=== PATIENT | male | born 1965 | race Caucasian/White ===

== ENCOUNTER 2016-11-11 17:51 | Emergency (ER) | payer MEDICAID ==
[~2016-11-11] VITALS: Ht 172.7 cm; Wt 100.0 kg
[2016-11-11] MEDS ORDERED: PREDNISONE 20MG TABLET PO STA (18:33)
[2016-11-11] MEDS ORDERED: IPRATROPIUM/ALBUTEROL 0.5-3(2.5)MG/3ML NEB HHN ONE (18:45)
[2016-11-11] MEDS ORDERED: LEVOFLOXACIN 500MG TABLET PO ONE (18:45)
[2016-11-11] MEDS ORDERED: IBUPROFEN 800MG TABLET PO ONE (18:45)
[2016-11-11 18:53] LABS: BASOPHILS % 0.6 % (0.0-2.0); EOSINOPHILS % 0.2 % (0.0-5.0); HEMATOCRIT. 41.6 % (42.0-52.0); HEMOGLOBIN. 14.1 g/dL (14.0-18.0); LYMPHOCYTES % 8.3 % (20.0-50.0); MEAN CORPUSCULAR HEMOGLOBIN 28.1 pg (28.0-32.0); MEAN CORPUSCULAR HGB CONC 33.8 g/dL (31.0-37.0); MEAN CORPUSCULAR VOLUME 83.3 fL (80.0-94.0); MEAN PLATELET VOLUME 7.6 fl (7.4-10.4); MONOCYTES % 9.8 % (2.0-8.0); NEUTROPHILS % 81.1 % (40.0-76.0); PLATELET 287 x1000/uL (130-400); RED BLOOD CELL COUNT 4.99 mill/uL (4.7-6.1); RED CELL DISTRIBUTION WIDTH 15.2 % (11.6-14.6); WHITE BLOOD COUNT 9.5 x1000/uL (4.5-11.0)
[2016-11-11 19:10] LABS: ALANINE AMINOTRANSFERASE 46 IU/L (13-61); ALBUMIN 3.3 g/dL (3.4-5.0); ANION GAP 18; CALCIUM 8.9 mg/dL (8.5-10.1); CARBON DIOXIDE 22 mEq/L (21-32); CHLORIDE 99 mEq/L (98-107); CREATINE KINASE 271 IU/L (39-308); INDEX HEMOLYSI 1 (1-3); INDEX ICTERIC 1 (1-4); INDEX LIPEMIC 1 (1-3); NT PRO B-TYPE NATRIURETIC PEP 39 pg/mL (5-125); TROPONIN I < 0.02 ng/mL (0.00-0.04); UREA NITROGEN BLOOD 15 mg/dL (7-21); eGFR > 60 mL/min (>60)
[2016-11-11 22:09] VITALS: BP 130/89
== END 2016-11-11 22:19 | disposition home or self-care (01) ==
LOC: ER 18:31
DX: J20.9 Acute bronchitis, unspecified (principal); R07.89 Other chest pain; I10 Essential (primary) hypertension; F17.210 Nicotine dependence, cigarettes, uncomplicated; Z71.6 Tobacco abuse counseling
CPT/HCPCS: 36415; 71010; 80053; 82550; 83880; 84484; 85025; 93005; 94640; 99285; J7512; Z7610; J7620

== ENCOUNTER 2020-04-04 13:38 | Inpatient (IN) | payer SELFPAY ==
[~2020-04-04] VITALS: Ht 175.3 cm; Wt 95.3 kg
[2020-04-04] MEDS ORDERED: HYDRALAZINE 20MG/ML VIAL IV ONE ×2 (20:00→22:30)
[2020-04-04 20:10] LABS: BASOPHILS % 0.5 % (0.0-2.0); EOSINOPHILS % 4.1 % (0.0-5.0); HEMATOCRIT. 44.2 % (42.0-52.0); HEMOGLOBIN. 15.4 g/dL (14.0-18.0); MEAN CORPUSCULAR HEMOGLOBIN 29.9 pg (28.0-32.0); MEAN CORPUSCULAR VOLUME 85.9 fL (80.0-94.0); MONOCYTES % 6.4 % (2.0-8.0); PLATELET 286 x1000/uL (130-400); RED BLOOD CELL COUNT 5.14 mill/uL (4.7-6.1)
[2020-04-04 20:11] LABS: CHLORIDE 103 mEq/L (98-107)
[2020-04-05 03:13] LABS: *AMPHETAMINES SCREEN URINE NEGATIVE (NEGATIVE); *BARBITURATES SCREEN URINE NEGATIVE (NEGATIVE); *BENZODIAZEPINES SCREEN URINE NEGATIVE (NEGATIVE)
[2020-04-05 03:14] LABS: *COCAINE SCREEN URINE NEGATIVE (NEGATIVE); CANNABINOID URINE SCREEN NEGATIVE (NEGATIVE); METHADONE URINE SCREEN NEGATIVE (NEGATIVE); OPIATES URINE SCREEN NEGATIVE (NEGATIVE); PHENCYCLIDINE URINE SCREEN NEGATIVE (NEGATIVE)
[2020-04-05] MEDS: ACETAMINOPHEN 325MG TABLET PO PRN ×2 (03:49→12:38)
[2020-04-05] MEDS: HYDRALAZINE HCL 10MG TABLET PO SCH ×4 (06:20→21:45)
[2020-04-05] MEDS ORDERED: HYDRALAZINE 20MG/ML VIAL IV PRN (11:00)
[2020-04-05] MEDS ORDERED: CLONIDINE 0.1MG TABLET PO PRN (11:00)
[2020-04-05] MEDS ORDERED: ONDANSETRON HCL 4MG/2ML INJ IV PRN (11:00)
[2020-04-05 12:00] VITALS: BP 199/113
[2020-04-05] MEDS: AMLODIPINE 10MG TABLET PO SCH (12:38)
[2020-04-05 13:20] VITALS: BP 199/113
[2020-04-05] MEDS ORDERED: PNEUMOCOCCAL 23-VAL P-SAC VAC 0.5 ML IM ONE (15:45)
[2020-04-05 16:00] VITALS: BP 168/103
[2020-04-05 20:46] VITALS: BP 109/88
[2020-04-05] MEDS ORDERED: TRAZODONE HCL 50MG TABLET PO PRN (21:00)
[2020-04-05] MEDS: HEPARIN 5000 UNITS/ML VIAL SUBCUT SCH (21:44)
[2020-04-06] VITALS: BP 135/83
[2020-04-06 04:00] VITALS: BP 130/83
[2020-04-06] MEDS: HYDRALAZINE HCL 10MG TABLET PO SCH ×2 (05:49→13:18)
[2020-04-06 06:23] LABS: BASOPHILS % 0.5 % (0.0-2.0); EOSINOPHILS % 4.6 % (0.0-5.0); HEMATOCRIT. 43.3 % (42.0-52.0); HEMOGLOBIN. 14.7 g/dL (14.0-18.0); LYMPHOCYTES % 27.4 % (20.0-50.0); MEAN CORPUSCULAR HEMOGLOBIN 29.3 pg (28.0-32.0); MEAN CORPUSCULAR VOLUME 86.6 fL (80.0-94.0); MEAN PLATELET VOLUME 8.2 fl (7.4-10.4); MONOCYTES % 6.9 % (2.0-8.0); NEUTROPHILS % 60.6 % (40.0-76.0); PLATELET 265 x1000/uL (130-400); RED BLOOD CELL COUNT 4.99 mill/uL (4.7-6.1); RED CELL DISTRIBUTION WIDTH 15.1 % (11.6-14.6)
[2020-04-06 06:33] LABS: CHLORIDE 105 mEq/L (98-107)
[2020-04-06 08:00] VITALS: BP 157/82
[2020-04-06] MEDS ORDERED: LOSARTAN POTASSIUM 25 MG TABLET PO SCH (09:00)
[2020-04-06] MEDS: AMLODIPINE 10MG TABLET PO SCH (09:15)
[2020-04-06] MEDS: HEPARIN 5000 UNITS/ML VIAL SUBCUT SCH (09:17)
[2020-04-06 12:00] VITALS: BP 138/81
[2020-04-06] MEDS ORDERED: ATOR40TA70 MT (12:55)
[2020-04-06] MEDS ORDERED: LOSA25TA3 PO (12:55)
[2020-04-06] MEDS ORDERED: AMLO10TA80 PO (12:55)
[2020-04-06] MEDS ORDERED: HYDR-4133 PO (12:55)
[2020-04-06 13:48] VITALS: BP 138/81
[2020-04-06] MEDS ORDERED: ATORVASTATIN CALCIUM 20MG TABLET PO SCH (21:00)
== END 2020-04-06 16:15 | disposition home or self-care (01) | DRG 199 ==
LOC: ER 13:44 → 5WST 22:57 → EDBEDREQSVC 23:02 → EDBEDREQ 23:02 → EDBEDREQTM 23:02 → ENRESERV 04-05 10:59
PROVIDERS: ADMIT Internal Medicine; ATTEND Internal Medicine
DX: I16.1 Hypertensive emergency (principal); E78.5 Hyperlipidemia, unspecified; I45.10 Unspecified right bundle-branch block; F17.210 Nicotine dependence, cigarettes, uncomplicated; I10 Essential (primary) hypertension; G89.29 Other chronic pain; M54.2 Cervicalgia; M54.9 Dorsalgia, unspecified; Z82.49 Family history of ischemic heart disease and other diseases of the circulatory system; Z79.899 Other long term (current) drug therapy
CPT/HCPCS: 36415; 71045; 80053; 80061; 80305; 83735; 84484; 85025; 93005; 93306; 96374; 99285; J0360; J1644

== ENCOUNTER 2020-10-11 13:56 | Emergency (ER) | payer MEDICAID ==
[~2020-10-11] VITALS: Ht 175.3 cm; Wt 91.0 kg
[~2020-10-11 13:56] MED LIST: AMLO10TA80 PO; ATOR40TA70 MT; HYDR-4133 PO; LOSA25TA3 PO
[2020-10-11] MEDS ORDERED: KETOROLAC 60MG/2ML VIAL IM ONE (15:00)
[2020-10-11] MEDS ORDERED: POLY10DR EACHEYE (16:37)
[2020-10-11] MEDS ORDERED: LOSA50TA41 MT (16:49)
[2020-10-11 17:00] VITALS: BP 210/100
== END 2020-10-11 17:42 | disposition home or self-care (01) ==
LOC: ER 13:56
DX: J06.9 Acute upper respiratory infection, unspecified (principal); I10 Essential (primary) hypertension; Z79.899 Other long term (current) drug therapy
CPT/HCPCS: 71045; 93005; 96372; 99283; J1885